=== PATIENT | female | born 1975 | race Caucasian/White ===

== ENCOUNTER 2023-07-22 16:30 | Emergency (ER) | payer OTHER, SELFPAY ==
--- OUTSIDE RECORDS SUMMARY | 2023-07-22 16:33 | XMS REPORT | Continuity of Care Document ---
:1975 Author Organization [facility] t Address [address] [facility] [address] [place] [address] Care Team Providers Name Role Phone Lydia Valadez Primary Care Physician EZ RUDOLPH Attending Clinician Unavailable Ez Ellington Attending Clinician PITO ALARCON Attending Clinician Unavailable Pito Alarcon MD Attending Clinician TORIN COE Attending Clinician Unavailable CLARISSA TAPIA Attending Clinician Unavailable Problems Condition Condition Condition Status Onset Resolution Last Treating Co mments Source Name Details Category Date Date Treatment Clinician Date No known No known Disease Unive rs active active ity of problems problems [facility] Allergies, Adverse Reactions, Alerts Allergy Allergy Status Severity Reaction(s) Onset Inactive Treating Comm ents Source Name Type Date Date Clinician Azithrom Propensi Active Shortness of 2018-11 Univers ycin ty to Breath 0-02 ity of adverse 00:00: [place] reaction 00 [facility] Codeine Propensi Active Nausea 2018-11 Univers ty to and/or 0-02 ity of adverse Vomiting 00:00: [place] reaction [facility] AZITHROM DRUG Active High Rash 2018-11 Univers YCIN INGREDI 0-02 ity of 00:00: [place] [facility] CODEINE DRUG Active Med N/V 2018-11 Univers INGREDI 0-02 ity of 00:00: [address] Social History Social Habit Start Date Stop Date Quantity Comments Source Sexual [facility] Gender identity Universit y [facility] Exposure to 2022-06-06 2022-06-16 Not sure [facility] SARS-CoV-2 (event) 00:00:00 20:56:00 [facility] Sex Assigned At [birth year] [facility]:00 Medical Branch Smoking Status Start Date Stop Date Source Tobacco [facility] consumption [facility] Medications Ordered Filled Start Stop Current Ordering Indication Dosage Frequency Signature Comments Components Source Medication Medication Date Date Medication? Clinician (SIG) Name Name kendrickbital- 2022- No 1{tbl} 1 tablet, [facility] acetaminoph 07-13 Oral, ity of en-caff 21:45: 21:46 ONCE, 1 [place] (ESGIC) 00 :00 dose, On Medical 50-325-40 Mon Branch mg tablet 1 07/13/23 at tablet 1645, MANJIT cefdinir 2022- Yes [id number] 300mg Take 1 Univers 300 mg 07-13 capsule by ity of capsule 00:00: 04:59 mouth [place] 00 :00 every 12 Medical (twelve) Branch hours for 7 days. cloNIDine Yes .1mg 0.1 [facility] 8-16 Oral, TID, ity of tablet 0.1 13:00: First dose [place] 00 on [facility] 06/17/22 at Branch 0800, Until Discontinu ed, Routine lisinopriL 2021-0 Yes [id number] 20mg Take 1 U nivers 20 mg 8-15 tablet by ity of tablet 00:00: mouth in [place] 00 the Medical morning. Branch metoprolol 2021-0 Yes [id number] 25mg Take 1 U nivers tartrate 25 8-15 tablet by ity of mg tablet 00:00: mouth in [facility] 00 the Medical morning Branch and 1 tablet in the evening. lisinopriL 2021-0 Yes [id number] 20mg Take 1 U nivers 20 mg 8-15 tablet by ity of tablet 00:00: mouth in [place] 00 the Medical morning. Branch metoprolol Yes [id number] 25mg Take 1 U nivers tartrate 25 8-15 tablet by ity of mg tablet 00:00[place] the [place] morning Branch and 1 tablet in the evening. ibuprofen Yes [id number] 600mg Take 1 Univers 600 mg 8-09 tablet by ity of tablet 00:00: mouth [place] 00 every 6 Medical (six) Branch hours as needed for Pain (scale 4-6). ibuprofen Yes [id number] 600mg Take 1 Univers 600 mg 8-09 tablet by ity of tablet 00:00: mouth [place] 00 every 6 Medical (six) Branch hours as needed for Pain (scale 4-6). butalbital- 2018-11 Yes [id number] 1{tbl} Take 1 Univers acetaminoph 0-02 tablet by ity of en-caff 00:00: mouth [place] 50-325-40 00 every 6 Medical mg tablet (six) Branch hours as needed (Headache) . butalbital- 2018-11- No [id number] 1{tbl} Take 1 Univers acetaminoph 0-02 09-11 tablet by it y of en-caff 00:00: 00:00 mouth [place] 50-325-40 00 :00 every 6 Medical mg tablet (six) Branch hours as needed (Headache) . lisinopril 2018-11- No [id number] 20mg Take 1 Univers 20 mg 0-02 08-15 tablet by ity of tablet 00:00: 00:00 mouth [place] 00 :00 daily. Medical Branch metoprolol 2018-11- No [id number] 25mg Take 1 Univers tartrate 25 0-02 08-15 tablet by it y of mg tablet 00:00[place] 00:[place] (two) Medical times Branch daily. Vital Signs Vital Name Observation Time Observation Value Comments Source Systolic blood 2023-07-13 21:21:00 138 mm[Hg] Univer sity of pressure [facility] Diastolic blood 2023-07-13 21:21:00 97 mm[Hg] Unive [facility] Heart rate 2023-07-13 21:21:00 83 /min Universi ty of [facility] Body temperature 2023-07-13 21:21:00 36.72 Lelo [facility] ersity of [facility] Respiratory rate 2023-07-13 21:21:00 16 /min Univ ersity of [facility] Body height 2023-07-13 21:21:00 157.5 cm Universi ty of [facility] Body weight 2023-07-13 21:21:00 63.504 kg Universi ty of [facility] BMI 2023-07-13 21:21:00 25.61 [facility]m2 [facility] Oxygen saturation in 2023-07-13 21:21:00 98 /min University of Arterial blood by [facility] Pulse oximetry Branch Systolic blood 2022-06-17 04:01:00 145 mm[Hg] Univer sity of pressure [facility] Diastolic blood 2022-06-17 04:01:00 90 mm[Hg] Unive rsity of [facility] Heart rate 2022-06-17 04:01:00 75 /min [facility] Respiratory rate 2022-06-17 04:01:00 16 /min [facility] Oxygen saturation in 2022-06-17 04:01:00 98 /min [facility] Arterial blood by [facility] Pulse oximetry Branch Body temperature 2022-06-17 02:00:00 37.11 Lelo [facility] Body height 2022-06-17 02:00:00 157.5 cm Universi ty of [facility] Body weight 2022-06-17 02:00:00 63[facility]504 [facility] BMI 2022-06-17 02:00:00 25.61 kg/m2 [facility] Procedures Procedure Date / Time Performed Performing Clinician [facility] e ASSIGNMENT OF BENEFITS 2023-07-13 22:27:19 Doctor Unassigned, No [facility] URINALYSIS 2023-07-13 21:48:00 LisaEz gonzalez [place] o f [facility] POCT TEST 2023-07-13 21:43:00 Ez Rudolph [facility] NOTICE OF PRIVACY 2023-07-13 21:02:56 Doctor Unassigned, No Univ [facility] CONSENT/REFUSAL FOR 2023-07-13 21:00:59 Doctor Unassigned, No [facility] [place] DIAGNOSIS AND Name Medical Branch TREATMENT NOTICE OF PRIVACY 2022-06-17 01:50:15 Doctor Unassigned, No Univ [facility] [place] PRACTICES Name [facility] Branch CONSENT/REFUSAL FOR 2022-06-17 01:49:10 Doctor Unassigned, No [facility] [place] DIAGNOSIS AND Name Medical Branch TREATMENT Encounters Start End Encounter Admission Attending Care Care Encounter Source Date/Time Date/Time Type Type Clinicians Facility Department ID 2023-07-13 2023-07-13 [id number] Univers 16:21:00 17:43:00 EZ pelaezjesse [facility] 2023-07-13 2023-07-13 [facility] [id number] Univers 16:21:00 17:43:00 Ez STEARNS [id number] i ty of [place] [id number] [facility] [id number] [address] 2023-06-01 2023-06-01 Outpatient [facility] [id number] 09:28:49 09:28:49 [id number] F Dunlap 2022-12-02 2022-12-02 Outpatient [facility] [id number] 15:24:13 15:24:13 [id number] F Dunlap 2022-06-16 2022-06-16 [facility] [id number] Univers 21:02:00 23:39:00 PITO dey [facility] 2022-06-16 2022-06-16 [facility] [id number] Univers 21:02:00 23:39:00 Pito STEARNS [id number] i ty of [place] [id number] [facility] [id number] [address] 2021-06-09 2021-06-09 Emergency X CAROLIN [facility] ERT [id number] Univers 21:44:00 21:44:00 TORIN dey [facility] 2019-08-03 2019-08-03 [facility] [id number] Univers 19:24:59 23:12:00 [facility] Results Test Description Test Time Test Comments Results Result Comments Source POCT TEST 2023-07-13 21:43:00 Test Item Value Reference Range Interpretation Comme nts POCT PREG (test code = 1605) Negative On board controls acceptable with C Line (test code = 3574) Yes POCT PREG LOT # (test code = 3575) [id number] POCT PREG TEST DATE (test code = 3576) 11-04-2024 Lab Interpretation (test code = 49910-7) [facility]
[2023-07-22 18:29] LABS: Specific Gravity 1.026 (1.005-1.030)
[2023-07-22 18:31] LABS: Specific Gravity 1.026 (1.005-1.030); Urine Bacteria 20-50 /HPF (<20); Urine Bilirubin NEGATIVE (Negative); Urine Blood 3+ (OVER) (Negative); Urine Clarity Extremely Turbid (Clear); Urine Color Light-Orange (Yellow); Urine Glucose NEGATIVE (Negative); Urine Protein 3+ (Negative); Urine RBC >50 /HPF (None Seen); Urine Urobilinogen Normal (Normal); Urine WBC Clump Many /HPF (None Seen)
[2023-07-22] MEDS ORDERED: NA CHLORIDE 0.9% 1,000 ML ONE (19:08)
[2023-07-22] MEDS ORDERED: KETOROLAC 30 MG/ML INJ ONE (19:08)
[2023-07-22 19:13] LABS: Absolute Lymphocytes (CBC) 2.8 K/uL (0.7-4.9); Hematocrit 37.1 % (36.0-45.0); Lymphocytes % 26.2 % (15.3-44.8); MCV 87.1 fL (80-100); MPV 7.8 fL (7.6-11.3); Platelets 271 thou/uL (152-406); RBC Red Blood Cell Count 4.26 M/uL (3.86-4.86)
--- NOTE | 2023-07-22 19:27 | RAD REPORT ---
EXAM DESCRIPTION: CT - Abdomen Pelvis W Contrast - 07/22/2023 6:46 pm CLINICAL HISTORY: ABD PAIN COMPARISON: No comparisons TECHNIQUE: Thin cut axial CT imaging of the abdomen and pelvis was performed following intravenous a dministration of 100 mL Isovue 300. Multiplanar reformats were generated and reviewed. All CT scans are performed using dose optimization technique as appropriate and may include automated exposure control or mA/KV adjustment according to patient size. FINDINGS: No suspicious findings in the lung bases. The liver, spleen, and pancreas show no suspicious findings. Gallbladder and biliary tree are also wi thout suspicious finding. Symmetric renal function is seen with no hydronephrosis or suspicious renal mass. No dilated bowel loops or bowel wall thickening. No free air, free fluid or inflammatory stranding. N o hernia, mass or bulky lymphadenopathy. No suspicious bony findings. The urinary bladder is suboptimally distended, with diffuse wall thickening and mucosal hyperenhancem ent. Bilateral ovarian cysts, largest measuring 5.6 cm on the left and 4.7 cm on the right. Nabothian cysts are noted. IMPRESSION: Diffuse bladder wall thickening although nondistention somewhat limits evaluation. Mucos al hyperenhancement. Findings would suggest acute cystitis in the appropriate clinical setting.
[2023-07-22 20:03] LABS: Albumin 3.4 g/dL (3.4-5.0); Bilirubin Total 0.5 mg/dL (0.2-1.0); Potassium 3.4 mEq/L (3.5-5.1); Protein, Total 6.7 g/dL (6.4-8.2)
--- NOTE | 2023-07-22 20:11 | ER ---
Nurse's Notes [facility] Name: Annika Holt Age: 47 yrs Sex: Female : 1975 Arrival Date: 07/22/2023 Time: 16:30 Bed 20 Private MD: Diagnosis: Acute cystitis Presentation: 07/22 16:47 Chief complaint: Patient states: Burning w/ urination, lower abdominal pain, pain in ph mid back, was seen at ER in [place] and given antibiotics for UTI 1 week ago but symptoms have not improved. Coronavirus screen: Vaccine status: Patient reports receiving the 2nd dose of the covid vaccine. Ebola Screen: No symptoms or risks identified at this time. Initial Sepsis Screen: Does the patient meet any 2 criteria? No. Patient's initial sepsis screen is negative. Does the patient have a suspected source of infection? Yes: Dysuria/Frequency/Urgency/UTI. Risk Assessment: Do you want to hurt yourself or someone else? Patient reports no desire to harm self or others. Onset of symptoms was July 22, 2023. 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 - Social history:: Smoking status: Patient denies any tobacco usage or history of. Screenin:00 [facility] ED Fall Risk Assessment (Adult) Score/Fall Risk Level 0 - 2 = Low Risk. Abuse eh3 screen: Denies threats or abuse. Denies injuries from another. Nutritional screening: No deficits noted. Tuberculosis screening: No symptoms or risk factors identified. Assessment: 19:00 General: Appears in no apparent distress. uncomfortable. General: Behavior is eh3 cooperative, appropriate for age. Pain: Complains of pain in suprapubic area, right flank. Neuro: Level of Consciousness is awake, alert, obeys commands, Oriented to person, place, time, situation. Cardiovascular: Capillary refill < 3 seconds Patient's skin is warm and dry. Respiratory: Airway is patent Respiratory effort is even, unlabored, Respiratory pattern is regular, symmetrical. GI: Abdomen is round non-distended, Bowel sounds present X 4 quads. Abd is soft X 4 quads Abdomen is tender to palpation in suprapubic area, right lower quadrant and left lower quadrant. : Reports burning with urination, urgency, urinary frequency. Derm: Skin is healthy with good turgor, Skin is pink, warm \T\ dry. Musculoskeletal: Circulation, motion, and sensation intact. 20:00 Reassessment: Patient appears in no apparent distress at this time. Patient and/or eh3 family updated on plan of care and expected duration. Pain level reassessed. Patient is alert, oriented x 3, equal unlabored respirations, skin warm/dry/pink. Vital Signs: 16:47 BP 145 / 85; Pulse 83; Resp 18; Temp 98.6; Pulse Ox 99% on R/A; Weight 63.5 kg; Height ph 5 ft. 2 in. ; 19:00 BP 142 / 90; Pulse 65; Resp 18; Pulse Ox 100% on R/A; eh3 20:00 BP 143 / 76; Pulse 68; Resp 18; Pulse Ox 100% on R/A; eh3 16:47 Body Mass Index 25.61 (63.50 kg, 157.48 cm) ph ED Course: 16:36 Patient arrived in ED. im 16:38 Tara Vaca PA-C is PHCP. sb4 16:38 Michael Rivera MD is Attending Physician. sb4 16:52 Triage completed. ph 16:53 Arm band placed on Patient placed in waiting room, Patient notified of wait time. ph 18:01 UAM Sent. ph 18:01 Test, Urine Sent. ph 18:37 Inserted saline lock: 22 gauge in left antecubital area, using aseptic technique. Blood ll1 collected. 18:48 CT Abd/Pelvis - IV Contrast Only In Process Unspecified. EDMS 18:55 Vielka Reyna, RN is Primary Nurse. eh3 19:00 Patient has correct armband on for positive identification. Bed in low position. Call eh3 light in reach. Side rails up X2. Provided Education on: Use of call guillaume. Pulse ox on. NIBP on. 19:02 PHCP role handed off by Tara Vaca PA-C kb 19:02 Heather Falcon FNP-C is [facility]. kb 20:23 No provider procedures requiring assistance completed. IV discontinued, intact, eh3 bleeding controlled, No redness/swelling at site. Pressure dressing applied. Administered Medications: 19:00 Drug: NS 0.9% IV 1000 ml IV at 1 bolus Per protocol; 1000 mL bolus Route: IV; Rate: 1 eh3 bolus; Site: left antecubital; 20:19 Follow up: IV Status: Completed infusion; IV Intake: 1000ml eh3 19:00 Drug: TORadol - Ketorolac IVP 15 mg IVP once Route: IVP; Site: left antecubital; eh3 20:19 Follow up: Response: No adverse reaction eh3 20:19 Drug: Rocephin IV 1 grams IV at calculated rate once; Given slow IV push per pharmacy eh3 instructions Route: IV; Rate: calculated rate; Site: left antecubital; 20:19 Follow up: Response: Medication administered at discharge.; IV Status: Completed eh3 infusion; IV Intake: 50ml Medication: 20:23 VIS not applicable for this client. eh3 Intake: 20:19 IV: 1000ml; Total: 1000ml. eh3 20:19 IV: 50ml; Total: 1050ml. eh3 Outcome: 20:11 Discharge ordered by . kb 20:23 Discharged to home ambulatory, with significant other, eh3 20:23 Condition: stable 20:23 Discharge instructions given to patient, Instructed on discharge instructions, follow up and referral plans. medication usage, Demonstrated understanding of instructions, follow-up care, medications, Prescriptions given X 1, 20:28 Patient left the ED. eh3 Signatures: Dispatcher [employer] EDMS Heather Falcon FNP-C FNP-Ckb Hall, Patricia, RN RN Pepe Jay RN RN 1 Vielka Reyna RN RN 3 Tara Vaca PA-C PA-C sb4 Emeli Wilkerson
--- NOTE | 2023-07-22 20:11 | EDPHYS ---
Physician Documentation [facility] Name: Annika Holt Age: 47 yrs Sex: Female : 1975 Arrival Date: 07/22/2023 Time: 16:30 Bed 20 Private MD: ED Physician Michael Rivera HPI: 07/22 17:44 This 47 yrs old Female presents to ER via Ambulatory with complaints of Possible Kidney sb4 Stone, Low Back Pain. 17:44 The patient presents with flank pain, on the right, urinary symptoms, dysuria, sb4 frequency. Onset: The symptoms/episode began/occurred 1 week(s) ago. Modifying factors:. Associated signs and symptoms: Pertinent negatives: fever, nausea, vomiting. Patient states that she gets recurrent UTIs. She was seen at [facility] ED 1 week ago and told she had a UTI and discharged prescription for antibiotic. No blood work or imaging was done. She states that her dysuria has not gotten any better and now she has right-sided back pain. Denies any fever, nausea, vomiting, chills, chest pain, shortness of breath. 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 - Social history:: Smoking status: Patient denies any tobacco usage or history of. ROS: 17:44 Positive for urinary symptoms, flank pain, burning with urination, sb4 17:44 Constitutional: Negative for fever, chills, and weight loss, 17:44 All other systems are negative, Exam: 17:44 Constitutional: This is a well developed, well nourished patient who is awake, alert, sb4 and in no acute distress. Head/Face: Normocephalic, atraumatic. Eyes: Extra-ocular motions intact. Periorbital areas with no swelling, redness, or edema. ENT: Mucous membranes moist. Cardiovascular: Regular rate and rhythm with a normal S1 and S2. Respiratory: Lungs have equal breath sounds bilaterally, clear to auscultation and percussion. No rales, rhonchi or wheezes noted. No increased work of breathing, no retractions or nasal flaring. Abdomen/GI: Soft, non-tender, no distension. Skin: Warm, dry with normal turgor. Normal color with no rashes, no lesions, and no evidence of cellulitis. MS/ Extremity: Pulses equal, no cyanosis. Neurovascular intact. Full, normal range of motion. 17:44 Back: pain, is absent, ROM is normal, painless, normal spinal alignment noted, CVA tenderness, that is moderate, is noted on the right, vertebral tenderness, is not appreciated, Vital Signs: 16:47 BP 145 / 85; Pulse 83; Resp 18; Temp 98.6; Pulse Ox 99% on R/A; Weight 63.5 kg; Height ph 5 ft. 2 in. ; 19:00 BP 142 / 90; Pulse 65; Resp 18; Pulse Ox 100% on R/A; eh3 20:00 BP 143 / 76; Pulse 68; Resp 18; Pulse Ox 100% on R/A; eh3 16:47 Body Mass Index 25.61 (63.50 kg, 157.48 cm) ph MDM: 16:51 Patient medically screened. sb4 17:44 Differential diagnosis: kidney stone, urinary tract infection. sb4 19:02 Data reviewed: vital signs, nurses notes. Transition of care: After a detail discussion sb4 of the patient's case, care is transferred to Heather Falcon [facility]. 20:10 Counseling: I had a detailed discussion with the patient and/or guardian regarding the kb historical points, exam findings, and any diagnostic results supporting the discharge/admit diagnosis, lab results, radiology results, the need for outpatient follow up, a family practitioner, to return to the emergency department if symptoms worsen or persist or if there are any questions or concerns that arise at home. 07/22 16:50 Order name: CBC with Diff; Complete Time: 19:17 sb4 07/22 16:50 Order name: CMP; Complete Time: 20:05 sb4 07/22 16:50 Order name: Lipase; Complete Time: 20:05 sb4 07/22 16:50 Order name: Test, Urine; Complete Time: 18:31 sb4 07/22 16:50 Order name: UAM; Complete Time: 18:35 sb4 07/22 16:50 Order name: CT Abd/Pelvis - IV Contrast Only; Complete Time: 19:34 4 07/22 16:50 Order name: IV Saline Lock; Complete Time: 18:55 4 07/22 16:50 Order name: Labs collected and sent; Complete Time: 19:07 sb4 Administered Medications: 19:00 Drug: NS 0.9% IV 1000 ml IV at 1 bolus Per protocol; 1000 mL bolus Route: IV; Rate: 1 eh3 bolus; Site: left antecubital; 20:19 Follow up: IV Status: Completed infusion; IV Intake: 1000ml 3 19:00 Drug: TORadol - Ketorolac IVP 15 mg IVP once Route: IVP; Site: left antecubital; 3 20:19 Follow up: Response: No adverse reaction 3 20:19 Drug: Rocephin IV 1 grams IV at calculated rate once; Given slow IV push per pharmacy 3 instructions Route: IV; Rate: calculated rate; Site: left antecubital; 20:19 Follow up: Response: Medication administered at discharge.; IV Status: Completed eh3 infusion; IV Intake: 50ml Disposition: 21:31 Co-signature as Attending Physician, Michael Rivera MD I reviewed the patient's care rt provided by the Advanced Practice Provider and agree with the diagnosis and treatment plan. Disposition Summary: 07/22/23 20:11 Discharge Ordered Notes: Location: Home kb Condition: Stable kb Diagnosis - Acute cystitis kb Followup: kb - With: Emergency Department - When: As needed - Reason: Worsening of condition Followup: kb - With: Private Physician - When: 2 - 3 days - Reason: Recheck today's complaints, Continuance of care, Re-evaluation by your physician Discharge Instructions: - Discharge Summary Sheet kb - Urinary Tract Infection, Adult, Kbil-bo-Mtmt kb Forms: - Work release form kb - Medication Reconciliation Form kb - Thank You Letter kb - Antibiotic Education kb - Prescription Opioid Use kb - Patient Portal Instructions kb - Leadership Thank You Letter Prescriptions: - Augmentin 875-125 mg Oral Tablet - take 1 tablet ORAL route every 12 hours for 10 days; 20 tablet; Refills: 0, kb Product Selection Permitted Signatures: Dispatcher [employer] Haether Munoz FNP-C FNP-Zehra Perez RN RN Vielka Reyna RN RN 3 Brown, Tara, PA-C PA-C sb4 Michael Rivera MD MD rt
[2023-07-22] MEDS ORDERED: CEFTRIAXONE 1000 MG/VIAL ONE (20:26)
[2023-07-22] MEDS ORDERED: NA CHLORIDE 0.9% 50 ML ONE (20:26)
[2023-07-22 21:51] VITALS: O2SAT 100
[2023-07-22 21:52] VITALS: TEMP 98.6
[2023-07-22 21:53] VITALS: BP 143/76
== END 2023-07-22 20:28 | disposition home or self-care (01) ==
LOC: ER 16:30
DX: N30.00 Acute cystitis without hematuria (principal)
CPT/HCPCS: 36415; 74177; 80053; 81001; 81025; 83690; 85025; J0696; J7030; Q9967